=== PATIENT | male | born 1970 | race Caucasian/White ===

== ENCOUNTER 2017-07-04 05:10 | Day surgery (SDC) | payer OTHER ==
[~2017-07-04] VITALS: Ht 175.3 cm; Wt 111.5 kg
[~2017-07-04 05:10] MED LIST: ANDROGEL1.25 GM TD; JANUVIA100 MG PO; TENORMIN25 MG PO
[2017-07-04 06:05] VITALS: BP 112/63
[2017-07-04 06:41] LABS: POINT-OF-CARE METER ID UU14174212
[2017-07-04 09:50] LABS: POINT-OF-CARE METER ID UU13113675
[2017-07-04 10:00] VITALS: BP 99/55
[2017-07-04 11:00] VITALS: BP 96/63
== END 2017-07-04 11:20 | disposition home or self-care (01) ==
LOC: SDC 05:10
PROVIDERS: Orthopaedic Surgery
DX: S43.432A Superior glenoid labrum lesion of left shoulder, initial encounter (principal); M75.22 Bicipital tendinitis, left shoulder; M75.42 Impingement syndrome of left shoulder; I10 Essential (primary) hypertension; E11.9 Type 2 diabetes mellitus without complications; G47.33 Obstructive sleep apnea (adult) (pediatric); F17.200 Nicotine dependence, unspecified, uncomplicated
CPT/HCPCS: 82948; C1769; J0131; J0171; J0330; J0690; J1100; J2250; J2405; J2795; J3010; S0020